=== PATIENT | male | born 1955 | race Caucasian/White ===

== ENCOUNTER 2020-01-23 14:01 | Emergency (ER) | payer OTHER ==
[~2020-01-23] VITALS: Ht 188 cm; Wt 108.2 kg
[2020-01-23 14:07] VITALS: BP 176/99
[2020-01-23] MEDS ORDERED: ALBU8.5H8 IH (15:00)
[2020-01-23] MEDS ORDERED: AZIT250T83 PO (15:00)
[2020-01-23] MEDS ORDERED: PRED20TA PO (15:00)
[2020-01-23] MEDS ORDERED: BENZ-16 PO (15:00)
== END 2020-01-23 15:11 | disposition home or self-care (01) ==
LOC: ER 14:01
DX: J20.9 Acute bronchitis, unspecified (principal); M79.10 Myalgia, unspecified site; J02.9 Acute pharyngitis, unspecified; Z98.890 Other specified postprocedural states; Z79.2 Long term (current) use of antibiotics; Z79.899 Other long term (current) drug therapy
CPT/HCPCS: 71045; 99283